=== PATIENT | male | born 1975 | race Caucasian/White ===

== ENCOUNTER 2017-04-15 21:20 | Emergency (ER) | payer MEDICARE, OTHER ==
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
[~2017-04-15 21:20] MED LIST: BACTRIM DS TABL1 TAB PO; BUSPAR PO; BUSPAR5 M1; BUSPAR5 M2 PO; CLONIDINE HCL0.1 MG PO; CLONIDINE PO; CLONIDINE TOP; CLONIDINE1 EAC1; FLEXERIL10 MG PO; IBUPROFEN PO; IBUPROFEN800 MG PO; KEFLEX500 MG PO; LORTAB 7.51 TAB PO; MEDROL DOSEPAK4 MG PO; MOBIC PO; ORUDIS75 M1 PO; ULTRAM PO; VICODIN PO
== END 2017-04-16 02:17 | disposition home or self-care (01) ==
LOC: CED 21:20
DX: S52.514A Nondisplaced fracture of right radial styloid process, initial encounter for closed fracture (principal); S00.83XA Contusion of other part of head, initial encounter; F31.9 Bipolar disorder, unspecified; F90.9 Attention-deficit hyperactivity disorder, unspecified type; F17.210 Nicotine dependence, cigarettes, uncomplicated; V18.0XXA Pedal cycle driver injured in noncollision transport accident in nontraffic accident, initial encounter
CPT/HCPCS: 29260; 70450; 70486; 73110; 90715; 99285